=== PATIENT | male | born 1975 | race Caucasian/White ===

== ENCOUNTER 2018-03-07 23:34 | Emergency (ER) | payer SELFPAY ==
[~2018-03-07] VITALS: Ht 177.8 cm; Wt 96.6 kg
[2018-03-07 23:54] VITALS: Ht 177.8 cm; Wt 96.6 kg
[2018-03-08 01:54] VITALS: BP 121/82
== END 2018-03-08 01:54 | disposition home or self-care (01) ==
LOC: ED 23:34
DX: M72.2 Plantar fascial fibromatosis (principal); W01.0XXA Fall on same level from slipping, tripping and stumbling without subsequent striking against object, initial encounter; Y93.64 Activity, baseball; Y92.098 Other place in other non-institutional residence as the place of occurrence of the external cause; Y99.8 Other external cause status
CPT/HCPCS: Q0092